=== PATIENT | male | born 1985 | race Hispanic/Latino ===

== ENCOUNTER 2025-03-17 19:20 | Emergency (ER) | payer SELFPAY ==
--- NOTE | ~2025-03-17 | CT_ITS ---
EXAMINATION: CT abdomen pelvis wo con DATE: 03/17/2025 23:52 INDICATION: testicular radiating to flank pain with dysuria TECHNIQUE: Computed tomography (CT) of the abdomen and pelvis was performed without intravenous contr ast. Automated exposure control and iterative reconstruction technique were employed. The dose-length product was 893.59 mGy-cm. COMPARISON: None. FINDINGS: Lower thorax: Mild symmetric gynecomastia. Liver: Mildly enlarged. Diffuse fatty infiltration. Biliary/Gallbladder: Gallbladder is normal. No bile duct dilation. Pancreas: No mass or duct dilation. Spleen: Normal. Adrenals:No mass. Kidneys: No suspicious mass, obstructing stone, or hydronephrosis. Hyperdense renal pyramids as can b e seen with early medullary nephrocalcinosis. GI tract: No small or large bowel dilation. Appendix surgically absent. Mesentery/Peritoneum: No ascites, mass, or free air. Retroperitoneum: No mass. Pelvis: Pelvic organs are within normal limits. Soft Tissues: Small uncomplicated bilateral fat-containing inguinal hernias, right greater than left. Bones: No acute osseous finding. IMPRESSION: Mild symmetric gynecomastia. Hepatomegaly with steatosis. 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 Small uncomplicated appearing bilateral fat-containing inguinal hernias. Otherwise unremarkable CT abdomen and pelvis findings. Reviewed, dictated and finalized at location K.
--- NOTE | ~2025-03-17 | US_ITS ---
EXAMINATION: US scrotum doppler DATE: 03/17/2025 23:12 INDICATION: r/o torsion, right scrotal pain x1 week . TECHNIQUE: Grayscale and Doppler ultrasound images of the testes were obtained. COMPARISON: None. FINDINGS: The right testis measures 3.9 x 1.9 x 2.5 cm. The left testis measures 3.7 x 1.9 x 2.6 cm. No testicular mass. Several calcifications noted in the right testicle measuring between 1 and 3 mm. A single punctate calcification is noted in the left testicle. There is normal vascular flow to both testes. The right epididymis contains a 3 mm cyst and is otherwise normal with normal vascular flow. The left epididymis is normal with normal vascular flow. There is no varicocele. Small bilateral hydr oceles. IMPRESSION: Limited testicular microlithiasis. Small bilateral hydroceles No sonographic evidence of torsion. Reviewed, dictated and finalized at location K.
[2025-03-17 19:30] VITALS: BP 124/85; PULSE 72; RESP 18; TEMP 36.6; O2SAT 96
[2025-03-17 21:44] VITALS: BP 144/92; PULSE 68; RESP 18; O2SAT 97
[2025-03-17 21:46] VITALS: RESP 18
[2025-03-17 22:38] LABS: Add Urine Microscopic? NO; Appearance Urine Clear (Clear); Glucose Urine UA Negative (Negative); Leukocyte Esterase Ur Negative LEU/UL (Negative); Nitrate Urine Negative (Negative); Specific Grav Ur 1.026 (1.001-1.035)
[2025-03-17 23:42] LABS: Trichomonas Vag PCR NOT DETECTED (NOT DETECTE)
--- NOTE | 2025-03-18 00:34 | ED_ITS ---
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 Patient presents to the emergency department with right-sided groin pain, low back pain and pain into his testicle for about 1 week. Endorses being prescribed an antibiotic for urinary tract infection recently that he has been taking without difficulty. Endorses a burning sensation with urination as well as right testicular and groin pain that is pulsatile in nature. History of appendectomy, no right lower quadrant pain. No fever, chills, chest pain, shortness a breath. No difficulty ambulating. No concern for new sexual partners or STDs. No purulent drainage or penile discharge. No testicular swelling or masses. No testicular trauma. Review of Systems Review of Systems: As reviewed above in HPI Exam Narrative: GENERAL: [Well-appearing, well-nourished, and in no acute distress.] HEAD: [Normocephalic, atraumatic.] EYES: [PERRLA and EOMI.] ENT: Nares clear, no rhinorrhea or epistaxis. Mucous membranes moist. NECK: Supple. CHEST: [Clear to auscultation. No respiratory distress.] HEART: [Regular rate and rhythm]. No murmur heard. [Normal peripheral pulses.] ABDOMEN: [Soft, nondistended], [nontender], [No rigidity or guarding]. Chaperoned examination shows equally distended testicles without any tenderness along the scrotum. Some tenderness reproducible palpation along the testicle in the right-sided epididymis but no exquisite tenderness or any drainage. No penile tenderness or drainage. Left inguinal canal tenderness on palpation. No flank tenderness or right lower quadrant tenderness on exam. EXTREMITIES: Normal range of motion. [No edema.] SKIN: Warm, dry, no rash. NEURO: [No focal deficits]. Alert and oriented [x3.] PSYCH: [Normal mood and affect.] Course Vital Signs Vital signs: Vital Signs Temperature 36.6 C 03/17/25 19:30 Pulse Rate 72 03/17/25 19:30 Respiratory Rate 18 03/17/25 19:30 Blood Pressure 124/85 03/17/25 19:30 Pulse Oximetry 96 03/17/25 19:30 Oxygen Delivery Room Air 07/21/25 19:30 Temperature 36.6 C 03/17/25 19:30 Pulse Rate 68 03/17/25 21:44 Respiratory Rate 18 03/17/25 21:46 Blood Pressure 144/92 H 03/17/25 21:44 Pulse Oximetry 97 03/17/25 21:44 Oxygen Delivery Room Air 03/17/25 21:44 Medical Decision Making MDM Narrative Medical decision making narrative: 39-year-old male primarily [place]-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 Patient presents to the emergency department with right-sided groin pain, low back pain and pain into his testicle for about 1 week. Endorses being prescribed an antibiotic for urinary tract infection recently that he has been taking without difficulty. Endorses a burning sensation with urination as well as right testicular and groin pain that is pulsatile in nature. History of appendectomy, no right lower quadrant pain. No fever, chills, chest pain, shortness a breath. No difficulty ambulating. No concern for new sexual partners or STDs. No purulent drainage or penile discharge. No testicular s welling or masses. No testicular trauma. Exam with chaperoned examination shows equally distended testicles without any tenderness along the scrotum. Some tenderness reproducible palpation along the testicle in the right-sided epididymis but no exquisite tenderness or any drainage. No penile tenderness or drainage. Left inguinal canal tenderness on palpation. No flank tenderness or right lower quadrant tenderness on exam. Patient has reassuring vital signs with any fever, hypoxia, tachycardia or tachypnea. Normal blood pressure. Suspicion presently is for potential kidney stones versus testicular torsion intermittently, epididymitis, orchitis, testicular abscess less likely. Urinary tract infection recent treat with antibiotics. Ultrasound of the testicle and CT scan of the abdomen pelvis without contrast was obtained as well as urine studies and urine STD panel. Workup shows no urinary findings. Negative STD panel. Scrotal ultrasound shows some testicular microlithiasis and small bilateral hydroceles but no evidence of torsion. These calcifications measure between 1 and 3 mm. Normal vascular flow to both. CT scan shows some hyperdense renal pyramids possibly nephrocalcinosis otherwise no masses obstructing stones or hydrocephalus. Uncomplicated appearing fat containing inguinal hernias. Hepatomegaly. We discussed these imaging results and findings with the patient and he left to follow-up with the urologist for further recommendations and treatment of his urinary symptoms but no signs of stones or infection needing any treatment at this time. Recomm endations for anti-inflammatory pain control which will prescribe. Medical Records Medical records reviewed: Yes I reviewed the external patient's medical records. Vital Signs Vital Signs: Vital Signs Temperature 36.6 C 03/17/25 19:30 Pulse Rate 72 03/17/25 19:30 Respiratory Rate 18 03/17/25 19:30 Blood Pressure 124/85 03/17/25 19:30 Pulse Oximetry 96 03/17/25 19:30 Oxygen Delivery Room Air 03/17/25 19:30 Temperature 36.6 C 03/17/25 19:30 Pulse Rate 68 03/17/25 21:44 Respiratory Rate 18 03/17/25 21:46 Blood Pressure 144/92 H 03/17/25 21:44 Pulse Oximetry 97 03/17/25 21:44 Oxygen Delivery Room Air 03/17/25 21:44 Lab Data Lab results reviewed: Yes I reviewed the patient's lab results. Labs: Lab Results 03/17/25 Range/Units 22:27 Urine Color Yellow (Yellow) Urine Appearance Clear (Clear) Urine pH 5.5 (5.0-9.0) Ur Specific [place] 1.026 (1.001-1.035) Urine Protein Negative (Negative) mg/dL Urine Glucose (UA) Negative (Negative) mg/dL Urine Ketones Negative (Negative) mg/dL Ur Blood (Man) Negative (Negative) Urine Nitrate Negative (Negative) Urine Bilirubin Negative (Negative) Urine Urobilinogen 1.0 (<2.0) mg/dL Leukocyte Esterase Rfl Negative (Negative) CLOVIS/UL C. trachomatis (PCR) Not detected (NOT DETECTE) N. gonorrhoeae (PCR) Not detected (NOT DETECTE) T. vaginalis (PCR) Not detected (NOT DETECTE) Imaging Data Attestation: I personally reviewed and interpreted this imaging study as follows: My impression: Impressions Scrotum Ultrasound 03/17/25 23:15 IMPRESSION: Limited testicular microlithiasis. Small bilateral hydroceles No sonographic evidence of torsion. Abdomen/Pelvis CT 03/17/25 23:53 IMPRESSION: Mild symmetric gynecomastia. Hepatomegaly with steatosis. 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 Small uncomplicated appearing bilateral fat-containing inguinal hernias. Otherwise unremarkable CT abdomen and pelvis findings. Discharge Plan Discharge Clinical Impression: Testicular pain, right Patient Disposition: Home Condition: Stable Instructions: Antibiotic Form Additional Instructions: Limited testicular microlithiasis. Small bilateral hydroceles. We will prescribe anti-inflammatory pain medications as well as medications he can take for urinary pain. Follow-up with Urology on outpatient basis. Return with any emergent concerns. Patient Language: [place] Prescriptions: New ketorolac 10 mg tablet 10 mg PO Q8H PRN (Reason: pain) 5 Days Qty: 20 0RF Rx Instructions: maximum total duration of 5 days from all oral, intranasal, or parenteral formulations phenazopyridine [Pyridium] 200 mg tablet 200 mg PO TID PRN (Reason: pain) Qty: 6 0RF Follow-up/Referrals: Rosas Pederson MD [Physician] - 1 Week (Testicular pain, testicular microlithiasis) PHYSICIAN,BUILDING MAINTENANCE ENGINEER [Primary Care Provider] - Time of Disposition: 00:51
[2025-03-18 01:03] VITALS: BP 138/90; PULSE 69; RESP 17; TEMP 36.7; O2SAT 100
== END 2025-03-18 01:04 | disposition home or self-care (01) ==
PROVIDERS: Emergency Provider Student in an Organized Health Care Education/Training Program
DX: N50.811 Right testicular pain (principal); N43.3 Hydrocele, unspecified
CPT/HCPCS: 74176; 76870; 81003; 87491; 87591; 87661; 93976; 99284